=== PATIENT | female | born 1950 | race Hispanic/Latino ===

== ENCOUNTER 2018-04-18 11:15 | Emergency (ER) | payer OTHER, MEDICARE, MEDICAID ==
[~2018-04-18] VITALS: Ht 170.2 cm; Wt 95.9 kg
[~2018-04-18 11:15] MED LIST: ACCOLATE20 MG PO; CEPHALEXIN500 MG PO; CETIRIZINE10 MG PO; ENALAPRIL2.5 MG PO; FLEXERIL PO; HYDROCODONE/ACE1 TAB PO; LORTAB 5-325 MG1 TAB PO; MAALOX MAX OR; MACROBID100 MG PO; MOBIC7.5 M1 PO; NAPROSYN500 MG PO; TYLENOL325 MG OR; ULTRAM50 M1 PO
[2018-04-18] MEDS ORDERED: FLEXERIL PO (12:34)
[2018-04-18] MEDS ORDERED: TORADOL PO (12:34)
[2018-04-18 12:42] VITALS: BP 165/109
== END 2018-04-18 12:47 | disposition home or self-care (01) | DRG 605 ==
LOC: ED 11:15
DX: S20.211A Contusion of right front wall of thorax, initial encounter (principal); S80.02XA Contusion of left knee, initial encounter; S80.01XA Contusion of right knee, initial encounter; V53.6XXA Passenger in pick-up truck or van injured in collision with car, pick-up truck or van in traffic accident, initial encounter; Y92.411 Interstate highway as the place of occurrence of the external cause

== ENCOUNTER 2018-08-11 10:53 | Emergency (ER) | payer MEDICARE, MEDICAID ==
[~2018-08-11] VITALS: Ht 170.2 cm; Wt 98.2 kg
[~2018-08-11 10:53] MED LIST changes: +TORADOL PO
[2018-08-11] MEDS ORDERED: METFORMIN500 MG PO (11:04)
[2018-08-11] MEDS ORDERED: ATORVASTATIN CA20 MG PO (11:04)
[2018-08-11] MEDS ORDERED: LOSARTAN POT100 MG PO (11:04)
[2018-08-11] MEDS ORDERED: AMLODIPINE5 MG PO (11:04)
[2018-08-11 11:37] LABS: URINE BILIRUBIN - DIPSTICK NEGATIVE (NEGATIVE); URINE BLOOD DIPSTICK NEGATIVE (NEGATIVE); URINE COLOR YELLOW; URINE GLUCOSE - DIPSTICK NEGATIVE (NEGATIVE); URINE KETONE NEGATIVE (NEGATIVE); URINE LEUK ESTERASE TRACE (NEGATIVE); URINE NITRITE - DIPSTICK NEGATIVE (Negative); URINE PROTEIN - DIPSTICK NEGATIVE (NEG-TRACE); URINE SPECIFIC GRAVITY 1.015
[2018-08-11 11:41] LABS: HEMATOCRIT 47.4 % (37.0-47.0); HEMOGLOBIN 15.1 g/dl (12.0-16.0); IMMATURE GRANULOCYTES 0.5 % (0.0-5.0); MEAN CELL VOLUME 82.3 fL CALC (80.0-100.0); MEAN CORPUSCULAR HGB 26.2 pG CALC (26.0-32.0); MEAN CORPUSCULAR HGB CONC 31.9 g/L CALC (32.0-36.0); NEUT# 5.04 thou/uL (2.00-7.15); RED BLOOD COUNT 5.76 mill/uL (4.20-5.60); RED CELL DISTRI WIDTH 13.9 % (11.5-15.5)
[2018-08-11 11:55] LABS: ALBUMIN 4.3 g/dL (3.2-5.0); ALKALINE PHOSPHATASE 105 u/l (38-126); BILIRUBIN, TOTAL 0.6 mg/dL (0.0-1.4); BUN 12 mg/dL (8-23); BUN/CREATININE RATIO 20 (12-20 (CALC)); CARBON DIOXIDE 30 mmol/l (22-30); CHLORIDE 103 mmol/l (95-108); CREATININE 0.6 mg/dL (0.5-1.0); GFR > 60 ML/MIN (>=60 (CALC)); GFR FOR AFR.AMER. > 60 ML/MIN (>=60 (CALC)); LIPASE 60 u/l (23-300); SGOT/AST 20 u/l (9-36); SODIUM 141 mmol/l (137-146); TOTAL PROTEIN 7.3 g/dL (6.3-8.2)
[2018-08-11 11:56] LABS: ANION GAP 13 (6-22 (CALC))
[2018-08-11 12:02] LABS: POTASSIUM 5.2 mmol/l (3.5-5.1)
[2018-08-11] MEDS ORDERED: KEFLEX500 M1 PO (13:18)
[2018-08-11 13:46] VITALS: BP 142/69
[2018-08-12] MEDS ORDERED: ORPHENADRINE100 MG PO (22:28)
[2018-08-12] MEDS ORDERED: IBUPROFEN600 MG PO (22:28)
[2018-08-13] MEDS ORDERED: IBUPROFEN600 MG PO (14:08)
[2018-08-13] MEDS ORDERED: ORPHENADRINE100 MG PO (14:08)
== END 2018-08-11 13:58 | disposition home or self-care (01) ==
LOC: ED 10:53
DX: N39.0 Urinary tract infection, site not specified (principal); E11.9 Type 2 diabetes mellitus without complications
CPT/HCPCS: Q9967

== ENCOUNTER 2018-08-12 19:56 | Emergency (ER) | payer MEDICARE, MEDICAID ==
[~2018-08-12] VITALS: Ht 170.2 cm; Wt 97.0 kg
[~2018-08-12 19:56] MED LIST changes: +AMLODIPINE5 MG PO; +ATORVASTATIN CA20 MG PO; +KEFLEX500 M1 PO; +LOSARTAN POT100 MG PO; +METFORMIN500 MG PO
[2018-08-12] MEDS ORDERED: IBUPROFEN600 MG PO (22:28)
[2018-08-12] MEDS ORDERED: ORPHENADRINE100 MG PO (22:28)
[2018-08-12 22:45] VITALS: BP 122/70
[2018-08-13] MEDS ORDERED: ORPHENADRINE100 MG PO (14:08)
[2018-08-13] MEDS ORDERED: IBUPROFEN600 MG PO (14:08)
== END 2018-08-12 22:50 | disposition home or self-care (01) ==
LOC: ED 19:56
DX: M54.5 Low back pain (principal); R10.9 Unspecified abdominal pain; E11.9 Type 2 diabetes mellitus without complications; Z87.440 Personal history of urinary (tract) infections

== ENCOUNTER 2018-11-05 11:37 | Emergency (ER) | payer MEDICARE, MEDICAID ==
[~2018-11-05] VITALS: Ht 170.2 cm; Wt 100.0 kg
[~2018-11-05 11:37] MED LIST changes: +IBUPROFEN600 MG PO; +ORPHENADRINE100 MG PO
[2018-11-05] MEDS ORDERED: CLONAZEPAM0.5 MG PO (12:00)
[2018-11-05] MEDS ORDERED: PROAIR HFA108 MCG/AC PO ×2 (12:07→12:22)
[2018-11-05] MEDS ORDERED: DOXYCYC MONO100 M2 PO ×2 (12:07→12:22)
[2018-11-05 12:20] VITALS: BP 153/90
== END 2018-11-05 12:20 | disposition home or self-care (01) ==
LOC: ED 11:37
DX: J06.9 Acute upper respiratory infection, unspecified (principal); R05 Cough

== ENCOUNTER 2020-02-01 09:53 | Emergency (ER) | payer MEDICARE, MEDICAID ==
[~2020-02-01] VITALS: Ht 170.2 cm; Wt 85.0 kg
[~2020-02-01 09:53] MED LIST changes: +CLONAZEPAM0.5 MG PO; +DOXYCYC MONO100 M2 PO; +PROAIR HFA108 MCG/AC PO
[2020-02-01] MEDS ORDERED: CYCLOBENZAPR5 MG PO (11:28)
[2020-02-01] MEDS ORDERED: VOLTAREN1%GEL TOP (11:28)
[2020-02-01 11:45] VITALS: BP 148/76
== END 2020-02-01 11:45 | disposition home or self-care (01) ==
LOC: ED 09:53
DX: M17.11 Unilateral primary osteoarthritis, right knee (principal); E11.9 Type 2 diabetes mellitus without complications; Z79.84 Long term (current) use of oral hypoglycemic drugs; M79.661 Pain in right lower leg

== ENCOUNTER 2022-11-05 10:21 | Emergency (ER) | payer MEDICARE, MEDICAID ==
[~2022-11-05] VITALS: Ht 170.2 cm; Wt 103.0 kg
[2022-11-05] VITALS (24 sets, daily range): BP systolic 121–174; BP diastolic 69–98
[~2022-11-05 10:21] MED LIST changes: +CYCLOBENZAPR5 MG PO; +VOLTAREN1%GEL TOP
[2022-11-05] MEDS ORDERED: LEVOTHYROXIN50 MCG PO (10:52)
[2022-11-05] MEDS ORDERED: SINGULAIR10 MG PO (10:53)
[2022-11-05 12:30] LABS: BASO% 0.5 % (0-3); EOS% 2.2 % (0-8); HEMATOCRIT 47.7 % (37.0-47.0); HEMOGLOBIN 15.1 g/dl (12.0-16.0); IMMATURE GRANULOCYTES 0.5 % (0.0-5.0); LYMPH% 39.8 % (15-41); MEAN CELL VOLUME 83.2 fL CALC (80.0-100.0); MEAN CORPUSCULAR HGB 26.4 pG CALC (26.0-32.0); MEAN CORPUSCULAR HGB CONC 31.7 g/dL CAL (32.0-36.0); NEUT# 3.15 thou/uL (2.00-7.15); RED BLOOD COUNT 5.73 mill/uL (4.20-5.60); RED CELL DISTRI WIDTH 13.6 % (11.5-15.5)
[2022-11-05 12:38] LABS: ALKALINE PHOSPHATASE 97 u/l (38-126); ANION GAP 14 (6-22 (CALC)); BILIRUBIN, TOTAL 0.8 mg/dL (0.02-1.3); BUN 12 mg/dL (8-23); BUN/CREATININE RATIO 17 (12-20 (CALC)); CARBON DIOXIDE 27 mmol/l (22-30); CHLORIDE 105 mmol/l (95-108); CREATININE 0.7 mg/dL (0.5-1.0); GFR FOR AFR.AMER. > 60 ML/MIN (>=60 (CALC)); GFR OTHER RACES > 60 ML/MIN (>=60 (CALC)); POTASSIUM 4.4 mmol/l (3.5-5.1); SGOT/AST 68 u/l (9-36); SODIUM 141 mmol/l (137-146); TOTAL PROTEIN 7.1 g/dL (6.3-8.2)
[2022-11-05 15:19] LABS: URINE BILIRUBIN - DIPSTICK NEGATIVE (NEGATIVE); URINE BLOOD DIPSTICK NEGATIVE (NEGATIVE); URINE COLOR YELLOW; URINE GLUCOSE - DIPSTICK NEGATIVE (NEGATIVE); URINE KETONE NEGATIVE (NEGATIVE); URINE LEUK ESTERASE NEGATIVE (NEGATIVE); URINE PH 7.5 (4.5-8.0); URINE PROTEIN - DIPSTICK NEGATIVE (NEG-TRACE); URINE UROBILINOGEN - DIPSTICK 0.2 E.U./dL (0.2)
[2022-11-05 15:24] LABS: URINE NITRITE - DIPSTICK NEGATIVE (Negative)
== END 2022-11-05 16:16 | disposition home or self-care (01) ==
LOC: ED 10:21
PROVIDERS: Family Medicine
DX: R07.9 Chest pain, unspecified (principal); E11.9 Type 2 diabetes mellitus without complications; F32.A Depression, unspecified; Z87.440 Personal history of urinary (tract) infections; Z79.84 Long term (current) use of oral hypoglycemic drugs